=== PATIENT | female | born 1995 | race Caucasian/White ===

== ENCOUNTER 2019-01-19 12:34 | Emergency (ER) | payer BC ==
[~2019-01-19] VITALS: Ht 160 cm; Wt 86.2 kg
[2019-01-19] MEDS ORDERED: KETOROLAC TROMETHAMINE 30 MG INJ ONE (13:00)
[2019-01-19] MEDS ORDERED: KETOROLAC TROMETHAMINE 30 MG INJ IM ONE (13:00)
--- NOTE | 2019-01-19 13:12 | NUR ---
Patient discharged to home in stable conditon. Written and verbal after care instructions given. Patient verbalizes understanding of instructions.
== END 2019-01-19 13:16 | disposition home or self-care (01) ==
LOC: ER 12:34
DX: K08.89 Other specified disorders of teeth and supporting structures (principal); Z88.0 Allergy status to penicillin
CPT/HCPCS: 96372; 99283; J1885; A4663